=== PATIENT | male | born 1945 | race Caucasian/White ===

== ENCOUNTER 2023-12-16 16:04 | Emergency (ER) | payer MEDICARE, SELFPAY ==
--- NOTE | ~2023-12-16 | CT_ITS ---
CT diagnostic chest wo con Ordering provider: Nathaly Joy MD History: 78 years Male with . pleural effusion . Comparison: None. Technique: CT chest without IV contrast. Radiation reduction technique utilized. DLP is 431.7 mGy-cm FINDINGS: VISUALIZED THORACIC INLET: Normal. Axillary lymph nodes seen with the largest measures 1 cm. MEDIASTINUM: Aorta/coronary arteries: Moderate atheromatous disease. Stent graft is seen in the aortic arch and de scending aorta extending to the abdominal aorta. Heart/other: The heart is not enlarged. Lymph nodes: No mediastinal or hilar adenopathy. A defect in the right hemidiaphragm is seen measuring about 6 cm with herniation of large and small b owel bowel content. LUNGS: Minimal right pleural effusion. No pulmonary nodules or masses. No infiltrates No pneumothorax . VISUALIZED UPPER ABDOMEN: Abdominal aortic aneurysm with stent graft is seen. Stents are seen in the celiac and superior mesenteric arteries. Stents are seen in the renal arteries. Otherwise, the visualized upper abdomen is normal. MUSCULOSKELETAL: Soft tissues: The superficial soft tissues are normal. Bones: Age appropriate degenerative changes of the spine. IMPRESSION: 1. 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 2. Stent graft seen in the aorta. Stents in the celiac, superior mesenteric artery and renal arterie s. 3. Minimal right pleural effusion. Reviewed, dictated and finalized at location A. IMPRESSION: 1. Large right diaphragmatic defect with diaphragmatic hernia of small and lar ge bowel. 2. Stent graft seen in the aorta. Stents in the celiac, superior mesenteric ar deana and renal arteries. 3. Minimal right pleural effusion.
--- NOTE | ~2023-12-16 | XR_ITS ---
XR chest 2V Ordering provider: Nathaly Joy MD History: 78 years Male with . SOb, effusion . Comparison: None. FINDINGS: MEDIASTINUM: The cardiac silhouette is not enlarged. Stent graft is seen in the aortic arch, descendi ng aorta and abdominal aorta. LUNGS: No pneumothorax. Opacification in the right lower lobe area with bowel loops which may indicat e diaphragmatic hernia versus eventration of the right hemidiaphragm with adjacent atelectasis. Minim al effusion cannot be excluded. The left lung and right upper lobe are unremarkable. OTHER: No free air under the diaphragm. Right shoulder arthroplasty. IMPRESSION: Highly suggestive right diaphragmatic hernia. Further evaluation and clinical correlation advised. Possible minimal atelectasis in the right lung base. Reviewed, dictated and finalized at location A.
[2023-12-16 16:08] VITALS: BP 133/73; PULSE 84; RESP 22; TEMP 36.5; O2SAT 95
--- NOTE | 2023-12-16 18:25 | ECG_ITS ---
Test Date: 2023-12-16 19:27:01 Measurements Intervals [place] Rate: 73 P: 61 GA: 166 QRS: 32 QRSD: 91 T: 58 QT: 401 QTc: 442 Interpretive Statements SINUS RHYTHM BASELINE ARTIFACT- I, II, III, AVR, AVL, AVF NORMAL ECG No previous ECG available for comparison Electronically Signed On 12-17-2023 07:57:42 CDT by Enrique Aguilar D.O.
[2023-12-16 18:41] LABS: Basophils Absolute Auto 0.1 K/mm3 (0.0-0.1); Basophils Percent Auto 0.5 % (0.2-1.2); Eosinophils Absolute Auto 0.1 K/mm3 (0-0.3); Eosinophils Percent Auto 1.2 % (0-4.4); Hematocrit 43.2 % (42.0-52.0); Hemoglobin 14.4 g/dL (14.0-18.0); Immature Granulocyte Absolute 0.05 K/mm3 (0.00-0.031); Immature Granulocyte Percent A 0.5 % (0-0.5); Lymphocytes Absolute Auto 1.53 K/mm3 (0.9-3.2); Lymphocytes Percent Auto 14.5 % (18.3-44.2); Mean Corpuscular HGB Conc 33.3 g/dl (32-36); Mean Corpuscular Hemoglobin 31.6 pg (26-34); Mean Corpuscular Volume 94.9 fl (80-100); Monocytes Percent Auto 9.2 % (2.6-8.5); Neutrophils Absolute Auto 7.8 K/mm3 (1.3-6.7); Neutrophils Percent Auto 74.1 % (45.5-73.1); Platelet Count Result 229 k/mm3 (150-375); Red Blood Count 4.55 M/mm3 (4.6-6.20); Red Cell Distribution Width 13.3 % (11.5-14.5); White Blood Count 10.5 K/mm3 (4.5-10.0)
[2023-12-16 18:55] LABS: Lactic Acid Reflex 1.1 mmol/L (0.7-2.0)
[2023-12-16 18:56] LABS: Alanine Aminotransferase 33 U/L (6-50); Albumin Level 4.5 g/dL (3.5-5.1); Alkaline Phosphatase 108 U/L (38-126); Anion Gap 13 mmol/L (4-12); Aspartate Amino Transferase 27 U/L (17-59); Bilirubin,Total 0.8 mg/dL (0.2-1.3); Blood Urea Nitrogen 28 mg/dL (9-20); Calcium 9.4 mg/dL (8.4-10.2); Carbon Dioxide 24 mmol/L (22-30); Chloride 100 mmol/L (98-107); Estimated CRCL calculation 45 ml/min; Estimated Glomerular Filt Rate 59; Glucose 96 mg/dL (65-110); Potassium 4.6 mmol/L (3.4-5.0); Sodium 137 mmol/L (137-145)
[2023-12-16 19:00] VITALS: BP 150/84; PULSE 62; PULSE 69; RESP 14; TEMP 36.7; O2SAT 95
[2023-12-16 19:05] LABS: NT Pro B Type Natriuretic Pept 139 pg/mL (19.9-100)
[2023-12-16 19:16] LABS: Magnesium 2.1 mg/dL (1.6-2.3)
[2023-12-16 19:17] LABS: Influenza A QL RT-PCR Negative (Negative); Influenza B QL RT-PCR Negative (Negative); SARS-CoV-2 RNA PCR Negative (Negative)
--- NOTE | 2023-12-16 19:29 | ED.GENADULT ---
HPI - General Adult General Chief complaint: Shortness of Breath/Dyspnea Stated complaint: sob Time Seen by Provider: 12/16/23 18:22 History of Present Illness HPI narrative: Patient is a 78-year-old male who presents to the emergency department this afternoon complaining of shortness of breath. Patient states that he saw his primary care physician today at [facility] and was sent to our facility for further evaluation as a chest x-ray did reveal a right-sided pleural effusion. Patient was informed by his PCP that it will likely need to be drained. Patient denies any history of lung cancer, any COPD or asthma and denies any history of CHF. Patient's past medical history is significant for aortic aneurysm status post repair over at bones. Denies any history of coronary artery. Patient is currently denying any chest, any nausea or vomiting, denies any recent illness or any fevers or chills at home. Denies any abdominal pain, dysuria or hematuria. No additional symptoms or concerns at this time. Related Data Allergies Allergy/AdvReac Type Severity Reaction Status Date / Time No Known Allergies Verified 12/16/23 16:06 Review of Systems Review of Systems: All systems are reviewed and are negative unless stated otherwise in the HPI. Exam Narrative: General: Alert, awake, afebrile, in no acute distress. HEENT: PERRL, no rhinorrhea, no post nasal drip, oropharynx clear. Cardiovascular: Regular rate and rhythm, no murmurs, rubs or gallops, no peripheral edema. Respiratory: Diminished breath sounds over the right mid to lower lung jasmine, tachypnea, no wheezing, no rhonchi, no rubs, no respiratory distress. Abdomen: Soft, nontender, nondistended, no rebound, no guarding, no peritoneal signs. Musculoskeletal: No joint swelling or deformity, normal muscle tone. Skin: No rashes or petechia, no signs of infection. Neurological: Alert and oriented to person, place, and time. Follows all commands. No focal deficits, speech is clear and fluent. Course Vital Signs Vital signs: Vital Signs Temperature 97.7 F 12/16/23 16:08 Pulse Rate 84 12/16/23 16:08 Respiratory Rate 22 H 12/16/23 16:08 Blood Pressure 133/73 12/16/23 16:08 Pulse Oximetry 95 12/16/23 16:08 Oxygen Delivery Room Air 12/16/23 16:08 Temperature 98.0 F 12/16/23 22:22 Pulse Rate 88 12/16/23 23:19 Respiratory Rate 14 12/16/23 23:19 Blood Pressure 123/74 12/16/23 23:19 Pulse Oximetry 99 12/16/23 23:19 Oxygen Delivery Room Air 12/16/23 19:00 Medical Decision Making MDM Narrative Medical decision making narrative: The patient was evaluated by myself in the emergency department. History is obtained from patient who is an independent historian and physical exam was performed. External medical records were reviewed at this time. IV was established and pertinent tests were ordered. EKG was obtained which revealed sinus rhythm rate of 73 beats per minute, no evidence of acute ischemia. EKG was independently interpreted by me and is currently pending official cardiology read. Laboratory results obtained revealing no acute process. Imaging studies obtained included CXR which was independently interpreted by me revealing a right sided diaphragmatic hernia, which is pending final radiology interpretation. At this time, patient was informed of his blood work and imaging results. Per patient's request, PCP was paged and unfortunately I was unsuccessful and reaching the patient's primary care physician. CT chest without IV contrast was also obtained at this time and pending interpreted by me revealin. 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 2. Stent graft seen in the aorta. Stents in the celiac, superior mesenteric artery and renal arteries. 3. Minimal right pleural effusion. Patient was provided with a printout of his CT report and instructed that he will need to follow-up as an outpa
[2023-12-16 20:30] VITALS: BP 157/89; PULSE 75; RESP 15; TEMP 36.8; O2SAT 100
--- NOTE | 2023-12-16 20:33 | PM.IMHP ---
H&P: HPI History of Present Illness Date/Time: 12/16/23 20:33 Meds Home Medications and Allergies Allergies Allergy/AdvReac Type Severity Reaction Status Date / Time No Known Allergies Verified 12/16/23 16:06 Vital Signs Vital Signs - 24 hr 12/16/23 16:08 Temperature 97.7 F Pulse Rate 84 Respiratory Rate 22 H Blood Pressure 133/73 Pulse Oximetry 95 Oxygen Delivery Room Air H&P: Results Labs Labs: Short CBC 12/16/23 Range/Units 18:35 WBC 10.5 H (4.5-10.0) K/mm3 Hgb 14.4 (14.0-18.0) g/dL Hct 43.2 (42.0-52.0) % Plt Count 229 (150-375) k/mm3 BMP 12/16/23 18:35 Sodium 137 Potassium 4.6 Chloride 100 Carbon Dioxide 24 BUN 28 H Creatinine 1.20 Glucose 96 Calcium 9.4 Liver Function 12/16/23 Range/Units 18:35 Total Bilirubin 0.8 (0.2-1.3) mg/dL AST 27 (17-59) U/L ALT 33 (6-50) U/L Alkaline Phosphatase 108 (38-126) U/L Albumin 4.5 (3.5-5.1) g/dL
[2023-12-16 21:03] LABS: Prothrombin Time 13.7 Seconds (11.1-14.7)
[2023-12-16 22:22] VITALS: BP 113/96; PULSE 99; RESP 14; TEMP 36.7; O2SAT 95
[2023-12-16 23:19] VITALS: BP 123/74; PULSE 88; RESP 14; O2SAT 99
== END 2023-12-16 23:19 | disposition home or self-care (01) ==
PROVIDERS: Internal Medicine; Emergency Provider Emergency Medicine; PCP Internal Medicine
DX: R06.02 Shortness of breath (principal); K44.9 Diaphragmatic hernia without obstruction or gangrene; Z20.822 Contact with and (suspected) exposure to COVID-19
CPT/HCPCS: 36415; 71046; 71250; 80053; 83605; 83735; 83880; 85025; 85610; 87636; 93005; 99284